=== PATIENT | female | born 1995 | race Caucasian/White ===

== ENCOUNTER 2023-07-27 09:11 | Outpatient (AMB) | payer OTHER, SELFPAY ==
--- NOTE | 2023-07-27 09:16 | A.OFFVIS_ITS ---
Vital Signs 07/27/23 09:27 Height 5 ft 7 in Weight 190 lb 14.725 oz BMI 29.9 BP 112/74 Blood Pressure Location Lt brachial Position Sitting Pulse 82 Pulse Source Pulse Oximeter Pulse Oximetry (%) 97 Oxygen Delivery Method Room Air Intake Visit Reasons: Nausea, abdominal discomfort Intake Note: Germania presents in office today for a scheduled initial assessment visit. CC: Pt reports having sx for multiple years in excess of 5 years. Pt reports that they are finally ready to deal with this problem regarding their sx head on. Pt reports having frequent diarrhea, in addition to abdominal pain and intermittent nausea. Pt reports having a sharp pain prior to most BMs that is centered over the naval. Pt denies any discoloration or melena to the stool. 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 Patient reports over a decade long history of abdominal cramping and loose stools. Kate roland saw GI specialty in the past. Reports of having been tested. Patient reports 3-4 hour long test where she had to drink something and breathe into a bag. Test came back positive and patient was placed on medication. Patient was given samples in the office and was not able to afford the full treatment. Recently tested by PCP for H pylori and that was negative. Patient denies any epigastric pain postprandially. Patient denies any acid reflux, dyspepsia, dysphagia or odynophagia. Patient denies any melena, hematochezia. Patient reports that she has loose stools not necessary after eating. Sometimes she will have urge to have a bowel movement in the middle of the night and usually is loose. Patient states that when she has loose stools she usually gets cramps in the lower hard of her abdomen. [facility] Medical History Rosacea Depression Anxiety Surgical History [place] teeth extracted Hx of rhinoplasty Social History Alcohol intake: current Comment: Intermittently Patient Tobacco Use Status: Never used Tobacco Substance Use Type: Marijuana Review of Systems Const Denies weight gain and Denies weight loss ENT Reports no additional complaints, Denies dysphagia and Denies odynophagia Card Reports no additional complaints Resp Reports no additional complaints GI Reports abdominal pain (Cramping), Denies belching, Denies melena, Reports bloating, Denies change in bowel habits, Denies dysphagia, Denies excessive flatus, Denies dyspepsia, Denies heartburn, Denies diarrhea, Reports loose stools, Denies nausea, Denies odynophagia and Denies vomiting Musc Reports no additional complaints Neuro Reports no additional complaints Psych Reports no additional complaints Endo Reports no additional complaints Physical Exam Vital Signs: Last Vital Signs Pulse 82 07/27/23 09:27 BP 112/74 07/27/23 09:27 Pulse Ox 97 07/27/23 09:27 Oxygen Delivery Method Room Air 07/27/23 09:27 BMI result Body Mass Index 29.9 Const General: healthy appearing, no acute distress and well developed Nutritional Appearance: well nourished Orientation/consciousness: patient oriented x3 Resp Effort & Inspection: normal respiratory effort, able to speak in complete sentences, no tracheal deviation and symmetric chest movement Auscultation: clear to auscultation bilaterally Cardio Rate: regular rate GI Inspection: Yes normal to inspection, No distended and Yes obesity Palpation (GI): Soft to palpation, not firm, nontender and No hepatosplenomegaly present Auscultation: normal bowel sounds General: Yes no CVA tenderness Back/Spine/Pelvis Back: no CVA tenderness Skin General skin exam: elasticity normal, turgor normal and dry skin Neuro General: patient oriented x3 Psych Appearance: grossly normal Mental Status: mental status grossly normal Assessment & Plan Assessment & Plan (1) Diarrhea: Code(s): R19.7 - Diarrhea, unspecified Qualifiers: Diarrhea type: functional diarrhea Qualified Code(s): K59.1 - Functional diarrhea (2) Abdominal pain: Code(s): R10.9 - Unspecified abdominal pain Qualifiers: Abdominal location: lower abdomen, unspecified Qualified Code(s): R10.30 - Lower abdominal pain, unspecified (3) Nausea: Code(s): R11.0 - Nausea Plan Will check CRP, vitamin-D, B12 and folate levels. Will rule out inflammatory bowel disease. Most likely IBS with both diarrhea and constipation. Will rule out malabsorption. Patient does take oral supplements. Patient was encouraged to increase fiber intake and fluid intake. Discussed with patient low FODMAP diet. Patient will try to avoid carbs as much as she can as well as lactose. List of food recommended as well as list of food to avoid given to patient. Patient will follow-up in 3 months, sooner on as needed basis. She is agreeable to this plan and verbalizes understanding of instructions. She was given the opportunity to ask questions and all questions answered. Thank you for allowing me to participate in her care Orders: Orders C Reactive Protein Today K58.9 - Irritable bowel syndrome without diarrhea Vitamin B12 and Folate Today R19.7 - Diarrhea, unspecified Vitamin D 25-OH (D2 and D3) Today E55.9 - Vitamin D deficiency, unspecified Coding Level of Care Code New Pt Level 4 (04672) Diagnoses Functional diarrhea K59.1 Diarrhea type: functional diarrhea Lower abdominal pain R10.30 Abdominal location: lower abdomen, unspecified Nausea R11.0 Time Spent (min) 45 Comment 30 minutes spent with patient and additional 15 minutes spent reviewing her records
[2023-07-27 09:27] VITALS: BP 112/74; PULSE 82; O2SAT 97; BMI 29.9
== END 2023-07-27 09:55 | disposition home or self-care (01) ==
PROVIDERS: Visit Provider Nurse Practitioner Family
DX: K59.1 Functional diarrhea (principal); R10.30 Lower abdominal pain, unspecified; R11.0 Nausea
CPT/HCPCS: 99204

== ENCOUNTER → 2023-07-27 09:11 | Outpatient (BNVA) | payer OTHER, SELFPAY | PROVIDERS: Visit Provider Nurse Practitioner Family | DX: K59.1 Functional diarrhea (principal); R10.30 Lower abdominal pain, unspecified; R11.0 Nausea | CPT/HCPCS: 99202 ==

== ENCOUNTER 2023-09-29 13:39 | Outpatient (REF) | payer OTHER, SELFPAY ==
[2023-09-29 16:37] LABS: C Reactive Protein 0.65 mg/dL (< or = 0.50)
[2023-09-29 17:04] LABS: Vitamin B12 1125 pg/mL (200-900)
[2023-10-08 05:39] LABS: Vitamin D 25-OH, D2 <4 ng/mL; Vitamin D 25-OH, D3 100 ng/mL; Vitamin D 25-OH, Total 100 ng/mL (30-100)
== END 2023-09-29 13:40 | disposition home or self-care (01) ==
LOC: HO.LAB 13:39
PROVIDERS: Visit Provider Nurse Practitioner Family
DX: R19.7 Diarrhea, unspecified (principal); K58.9 Irritable bowel syndrome, unspecified; E55.9 Vitamin D deficiency, unspecified; K59.00 Constipation, unspecified
CPT/HCPCS: 36415; 82306; 82607; 82746; 86140; 99212

== ENCOUNTER 2023-09-29 13:39 | Outpatient (AMB) | payer OTHER, SELFPAY ==
--- NOTE | 2023-09-29 13:53 | MHC.OFFVIS ---
Vital Signs 09/29/23 13:54 Height 5 ft 7 in Weight 194 lb 14.218 oz BMI 30.5 BP 140/86 H Blood Pressure Location Rt brachial Position Sitting Pulse 84 Pulse Source Pulse Oximeter Pulse Oximetry (%) 98 Oxygen Delivery Method Room Air Intake Visit Reasons: 2 month follow up Intake Note: Germania presents in office today for a scheduled 2 mos FUV. CC; Pt reports that they have remained stable since their last visit. No improvements noticed. Pt still managing chronic sx. Pt reports that they did not get their labs done. However, MA was able to convince the pt to have their lab work done today so that we can get results by the end of the week. Director Of Strategic Sourcing Required: No Allergies cefprozil [From Cefzil] Allergy (Unknown, Verified 09/29/23 13:54) Unknown Sulfa (Sulfonamide Antibiotics) Allergy (Unknown, Verified 09/29/23 13:54) Unknown HPI HPI 2 month follow up: Details: LAST VISIT: Diarrhea Abdominal pain Nausea Plan Will check CRP, vitamin-D, B12 and folate levels. Will rule out inflammatory bowel disease. Most likely IBS with both diarrhea and constipation. Will rule out malabsorption. Patient does take oral supplements. Patient was encouraged to increase fiber intake and fluid intake. Discussed with patient low FODMAP diet. Patient will try to avoid carbs as much as she can as well as lactose. List of food recommended as well as list of food to avoid given to patient. Patient will follow-up in 3 months, sooner on as needed basis. She is agreeable to this plan and verbalizes understanding of instructions. She was given the opportunity to ask questions and all questions answered. ? Thank you for allowing me to participate in her care Orders Orders C Reactive Protein Today K58.9 Vitamin B12 and Folate Today R19.7 Vitamin D 25-OH (D2 and D3) Today E55.9 TODAY'S VISIT Patient is here today for follow-up and to discuss lab results. Patient was unable to do her labs. Patient will try to get them done today. Patient reports that not much change since last visit. Patient states that she continues to have constipation and then diarrhea. On and off abdominal cramping and bloating. Patient reports occasional dyspepsia without dysphagia or odynophagia. Patient states that she tried changing her diet. No significant change when trying PFSH Medical History Rosacea Depression Anxiety Surgical History [place] teeth extracted Hx of rhinoplasty Social History Alcohol intake: current Comment: Intermittently Patient Tobacco Use Status: Never used Tobacco Substance Use Type: Marijuana Review of Systems Const Denies weight gain and Denies weight loss ENT Reports no additional complaints, Denies dysphagia and Denies odynophagia Card Reports no additional complaints Resp Reports no additional complaints GI Denies abdominal pain, Denies belching, Denies melena, Denies bloating, Denies change in bowel habits, Reports constipation, Denies dysphagia, Denies excessive flatus, Denies dyspepsia, Denies heartburn, Denies diarrhea, Reports loose stools (occasional), Denies nausea, Denies odynophagia and Denies vomiting Reports no additional complaints Musc Reports no additional complaints Neuro Reports no additional complaints Psych Reports no additional complaints Endo Reports no additional complaints Physical Exam Vital Signs: Last Vital Signs Pulse 84 09/29/23 13:54 BP 140/86 H 09/29/23 13:54 Pulse Ox 98 09/29/23 13:54 Oxygen Delivery Method Room Air 09/29/23 13:54 BMI result Body Mass Index 30.5 Const General: healthy appearing and no acute distress Nutritional Appearance: obese Orientation/consciousness: patient oriented x3 Resp Effort & Inspection: normal respiratory effort, able to speak in complete sentences, no tracheal deviation and symmetric chest movement Auscultation: clear to auscultation bilaterally Cardio Rate: regular rate GI Inspection: Yes normal to inspection, No distended and Yes obesity Palpation (GI): Soft to palpation, not firm, nontender and No hepatosplenomegaly present Auscultation: normal bowel sounds General: Yes no CVA tenderness Back/Spine/Pelvis Back: no CVA tenderness Skin General skin exam: elasticity normal, turgor normal and dry skin Neuro General: patient oriented x3 Psych Appearance: grossly normal Mental Status: mental status grossly normal Assessment & Plan Assessment & Plan (1) Diarrhea: Code(s): R19.7 - Diarrhea, unspecified Qualifiers: Diarrhea type: functional diarrhea Qualified Code(s): K59.1 - Functional diarrhea (2) Abdominal pain: Code(s): R10.9 - Unspecified abdominal pain Qualifiers: Abdominal location: generalized Qualified Code(s): R10.84 - Generalized abdominal pain (3) Nausea: Code(s): R11.0 - Nausea (4) Constipation: Code(s): K59.00 - Constipation, unspecified Qualifiers: Constipation type: slow transit constipation Qualified Code(s): K59.01 - Slow transit constipation Plan Patient will go and get her blood work done today. Patient will start taking senna. States that she is not feeling like she is emptying her bowels completely despite having occasional loose stools. Increase fiber intake. Avoid dietary triggers. If CRP elevated, will do fecal calprotectin to rule out inflammatory bowel disease. Patient will return in the office in 3 months, sooner on as needed basis. She is agreeable to this plan and verbalizes understanding of instructions. She was given the opportunity to ask questions and all questions answered. Thank you for allowing me to participate in her care Medications: New sennosides (Natural Senna Laxative) 17.2 mg (2 x 8.6 mg) PO BEDTIME 60 tabs 3RF constipation K59.00 - Constipation, unspecified Coding Level of Care Code Est Pt Level 3 (81090) Diagnoses Functional diarrhea K59.1 Diarrhea type: functional diarrhea Generalized abdominal pain R10.84 Abdominal location: generalized Nausea R11.0 Slow transit constipation K59.01 Constipation type: slow transit constipation Time Spent (min) 30 Comment 20 minutes spent with patient additional 10 minutes spent reviewing her records
[2023-09-29 13:54] VITALS: BP 140/86; PULSE 84; O2SAT 98; BMI 30.5
== END 2023-09-29 14:28 | disposition home or self-care (01) ==
LOC: HO.HGI 13:39
PROVIDERS: Visit Provider Nurse Practitioner Family
DX: K59.1 Functional diarrhea (principal); R10.84 Generalized abdominal pain; R11.0 Nausea; K59.01 Slow transit constipation
CPT/HCPCS: 99213

== ENCOUNTER 2023-12-31 11:56 | Outpatient (AMB) | payer OTHER, SELFPAY ==
[2023-12-31 11:59] VITALS: BP 102/76; PULSE 80; O2SAT 97; BMI 29.0
--- NOTE | 2023-12-31 11:59 | A.OFFVIS_ITS ---
Vital Signs 12/31/23 11:59 Height 5 ft 7 in Weight 185 lb 3.013 oz BMI 29.0 BP 102/76 Blood Pressure Location Rt brachial Position Sitting Pulse 80 Pulse Source Pulse Oximeter Pulse Oximetry (%) 97 Oxygen Delivery Method Room Air Intake Visit Reasons: 3 mos FUV. Discuss colo Intake Note: PRESCRIPTIONS LAST GENERATED sennosides 8.6 mg tablet?(Natural Senna Laxative)?17.2 mg (2 x 8.6 mg) PO BEDTIME 60 tabs 3RF Kathy Gomez D 09/29/23 14:21 (Transmitted) Pt is still taking PRN without difficulty Relevant Flags or Indicators ? Requires Technical Support Technician? Kathleen Solo presents in office today for a scheduled 3 mos FUV and to discuss colo. CC; No recent labs, diagnostics. Pt reports having labs done per their initial visit since their most recent visit. ? Relevant GI Sx as reported per pt? Pt has recently started GLP 1 therapy and has had standard side effects as anticipated. Pt has had abdominal cramping, diarrhea, etc. ? Hx of any recent surgeries? None Technical Support Technician Required: No Allergies cefprozil [From Cefzil] Allergy (Unknown, Verified 12/31/23 11:59) Unknown Sulfa (Sulfonamide Antibiotics) Allergy (Unknown, Verified 12/31/23 11:59) Unknown HPI HPI 3 mos FUV. Discuss colo: Details: LAST VISIT: Diarrhea Abdominal pain Nausea Constipation Plan Patient will go and get her blood work done today. Patient will start taking senna. States that she is not feeling like she is emptying her bowels completely despite having occasional loose stools. Increase fiber intake. Avoid dietary triggers. If CRP elevated, will do fecal calprotectin to rule out inflammatory bowel disease. Patient will return in the office in 3 months, sooner on as needed basis. She is agreeable to this plan and verbalizes understanding of instructions. She was given the opportunity to ask questions and all questions answered. ? Thank you for allowing me to participate in her care Medications New sennosides (Natural Senna Laxative) 17.2 mg (2 x 8.6 mg) PO BEDTIME 60 tabs 3RF constipation K59.00 TODAY'S VISIT: Patient is here today for follow-up and to discuss going for colonoscopy. Patient has colonoscopy booked for January 26 and follow-up in the office on February 13. Patient reports that couple months ago she started taking Wegovy and is having dyspepsia, abdominal pain and bloating, occasional diarrhea, however she states that lately she has been more constipated the. Patient does have a family history of inflammatory bowel disease. CRP mildly elevated, however we will do colonoscopy 1st and then will do fecal calprotectin as that has to be preapproved by her insurance. Patient denies any issues with anesthesia in the past. No history of sleep apnea. Not on any anticoagulation medication. She is taking GLP 1 and will need to stop that week before. Her procedure scheduled for and she takes that on Wednesday so she was ask to hold that dose Wednesday before her procedure [facility] Medical History Rosacea Depression Anxiety Surgical History [place] teeth extracted Hx of rhinoplasty Social History Alcohol intake: current Comment: Intermittently Patient Tobacco Use Status: Never used Tobacco Substance Use Type: Marijuana Review of Systems Const Denies weight gain and Denies weight loss ENT Reports no additional complaints, Denies dysphagia and Denies odynophagia Card Reports no additional complaints Resp Reports no additional complaints GI Denies abdominal pain, Denies belching, Denies melena, Denies bloating, Denies change in bowel habits, Reports constipation, Denies dysphagia, Denies excessive flatus, Reports dyspepsia, Denies heartburn, Denies diarrhea, Reports loose stools, Denies nausea, Denies odynophagia and Denies vomiting Musc Reports no additional complaints Neuro Reports no additional complaints Psych Reports no additional complaints Endo Reports no additional complaints Physical Exam Vital Signs: Last Vital Signs Pulse 80 12/31/23 11:59 BP 102/76 12/31/23 11:59 Pulse Ox 97 12/31/23 11:59 Oxygen Delivery Method Room Air 12/31/23 11:59 BMI result Body Mass Index 29.0 Const General: healthy appearing and no acute distress Nutritional Appearance: obese Orientation/consciousness: patient oriented x3 Resp Effort & Inspection: normal respiratory effort, able to speak in complete sentences, no tracheal deviation and symmetric chest movement Auscultation: clear to auscultation bilaterally Cardio Rate: regular rate GI Inspection: Yes normal to inspection, No distended and Yes obesity Palpation (GI): Soft to palpation, not firm, nontender and No hepatosplenomegaly present Auscultation: normal bowel sounds General: Yes no CVA tenderness Back/Spine/Pelvis Back: no CVA tenderness Skin General skin exam: elasticity normal, turgor normal and dry skin Neuro General: patient oriented x3 Psych Appearance: grossly normal Mental Status: mental status grossly normal Assessment & Plan Assessment & Plan (1) Diarrhea: Code(s): R19.7 - Diarrhea, unspecified Qualifiers: Diarrhea type: functional diarrhea Qualified Code(s): K59.1 - Functional diarrhea (2) Abdominal pain: Code(s): R10.9 - Unspecified abdominal pain Qualifiers: Abdominal location: unspecified location Qualified Code(s): R10.9 - Unspecified abdominal pain (3) Nausea: Code(s): R11.0 - Nausea (4) Constipation: Code(s): K59.00 - Constipation, unspecified Qualifiers: Constipation type: slow transit constipation Qualified Code(s): K59.01 - Slow transit constipation Plan Patient will continue avoiding dietary triggers. What to expect before during and after procedure discussed with patient. Stressed the importance of good bowel prep and clear liquid diet day before procedure. I will see her after the procedure. Mildly elevated CRP, however as mentioned above in HPI we will hold off for now on doing fecal calprotectin. Patient is having more constipation then diarrhea now. Continue senna as needed. Patient is agreeable to current plan of care and verbalizes understanding of instructions. She was given the opportunity to ask questions and all questions answered. Thank you for allowing me to participate in her care Medications: New bisacodyl (Dulcolax (bisacodyl)) take 4 tabs at noon the day before your colonoscopy 20 mg (4 x 5 mg) PO ONCE 1 day 4 tabs 0RF Z12.11 - Encounter for screening for malignant neoplasm of colon polyethylene glycol 3350 (Miralax) As directed by gastroenterology department at [facility] 238 grams PO ONCE 238 grams 0RF Z12.11 - Encounter for screening for malignant neoplasm of colon Coding Level of Care Code Est Pt Level 3 (73984) Diagnoses Functional diarrhea K59.1 Diarrhea type: functional diarrhea Abdominal pain, unspecified abdominal location R10.9 Abdominal location: unspecified location Nausea R11.0 Slow transit constipation K59.01 Constipation type: slow transit constipation Time Spent (min) 30 Comment 20 minutes spent with patient and additional 10 minutes spent reviewing her records
== END 2023-12-31 12:48 | disposition home or self-care (01) ==
PROVIDERS: Visit Provider Nurse Practitioner Family
DX: K59.1 Functional diarrhea (principal); R10.9 Unspecified abdominal pain; R11.0 Nausea; K59.01 Slow transit constipation
CPT/HCPCS: 99213

== ENCOUNTER → 2023-12-31 11:56 | Outpatient (BNVA) | payer OTHER, SELFPAY | PROVIDERS: Visit Provider Nurse Practitioner Family | DX: K59.1 Functional diarrhea (principal); R10.9 Unspecified abdominal pain; R11.0 Nausea; K59.01 Slow transit constipation | CPT/HCPCS: 99212 ==

== ENCOUNTER 2024-01-27 11:44 | Day surgery (SDC) | payer OTHER, SELFPAY ==
[2024-01-25 13:27] VITALS: BMI 29.0
--- NOTE | 2024-01-27 11:51 | MHC.SHP ---
Pre-Procedural Eval Section A - 24 Hr Update-Section A only Date of Service: 01/27/24 The patient is an INPATIENT: No The patient has been examined within 24 hours of the surgical procedure. The History & Physical has been completed within 30 days and I have reviewed it.: Yes Section B - Complete if H&P > 30 days Chief Complaint: diarrhea Allergies: Allergies Allergy/AdvReac Type Severity Reaction Status Date / Time cefprozil [From Cefzil] Allergy Unknown Unknown Verified 12/31/23 11:59 Sulfa (Sulfonamide Allergy Unknown Unknown Verified 12/31/23 11:59 Antibiotics) Plan Diagnosis/Plan: Unchanged I have reviewed the history and physical and performed a pertinent physical examination on my patient. No changes have occurred unless specified. Time Spent With Patient Time: Total time managing care of this patient today ____ minutes.
[2024-01-27 12:15] VITALS: BP 120/79; PULSE 104; RESP 16; TEMP 36.9; O2SAT 97
--- NOTE | 2024-01-27 12:15 | HO.ANESPROP2 ---
Documented by User: Maryellen Zimmerman NP 01/26/24 08:48 HPI - Anesthesia Eval Consult details Narrative: 28yo F for Colonoscopy Anesthesia Pre-Procedure Meds Is the patient on any of the following meds?: GLP1/DPP4 PMFSH Past Medical History Medical History Rosacea Depression Anxiety Surgical History Surgical History [place] teeth extracted Hx of rhinoplasty Social History Social History Alcohol intake: current Comment: Intermittently Patient Tobacco Use Status: Never used Tobacco Use of substances other than those prescribed or required for medical reasons: Yes Substance Use Type: Marijuana Substance Use Type Other:: LAST USED TUES. Substance Use Frequency: Daily Are you DNR?: No Advance Directives: No Advance Directives Information Provided: Yes Meds Allergies Allergy/AdvReac Type Severity Reaction Status Date / Time cefprozil [From Cefzil] Allergy Unknown Unknown Verified 01/27/24 11:56 Sulfa (Sulfonamide Allergy Unknown Unknown Verified 01/27/24 11:56 Antibiotics) Home Medications ?Medication ?Instructions ?Recorded ?Confirmed ?Last Taken ?Type alprazolam 0.5 mg tablet 0.5 mg PO ONCE PRN Anxiety 07/27/23 01/27/24 Unknown History bupropion HCl 300 mg 24 hr tablet, mg PO 07/27/23 Unknown History extended release buspirone 15 mg tablet 15 mg PO ONCE 07/27/23 01/27/24 Unknown History dextroamphetamine-amphetamine 10 10 mg PO DAILY 07/27/23 01/27/24 Unknown History mg tablet metronidazole 1 % topical gel topical 07/27/23 Unknown History ondansetron HCl 4 mg tablet mg PO Q6-8H PRN Nausea 07/27/23 Unknown History semaglutide (weight loss) 1.7 mg subcut 12/31/23 Unknown History mg/0.75 mL subcutaneous pen injector (Anne) doxycycline hyclate 50 mg capsule 50 mg PO DAILY 01/27/24 01/27/24 Unknown History Exam Height,Weight and Vital Signs: Height 5 ft 7 in Weight 83.915 kg Assessment and Plan Assessment Anesthesia Assessment: Chart Reviewed Documented by User: Inna Marks DO 01/27/24 12:19 HPI - Anesthesia Eval Consult details Narrative: 28yo F for Colonoscopy. Medical marijuana daily. Anesthesia Pre-Procedure Meds Is the patient on any of the following meds?: GLP1/DPP4 PMFSH Past Medical History Medical History Rosacea Depression Anxiety Family History Family history of problems with anesthesia: No Surgical History Surgical History [place] teeth extracted Hx of rhinoplasty History of Problems with Anesthesia: No Social History Social History Alcohol intake: current Comment: Intermittently Patient Tobacco Use Status: Never used Tobacco Use of substances other than those prescribed or required for medical reasons: Yes Substance Use Type: Marijuana Substance Use Type Other:: LAST USED TUES. Substance Use Frequency: Daily Are you DNR?: No Advance Directives: No Advance Directives Information Provided: Yes Meds Allergies Allergy/AdvReac Type Severity Reaction Status Date / Time cefprozil [From Cefzil] Allergy Unknown Unknown Verified 01/27/24 11:56 Sulfa (Sulfonamide Allergy Unknown Unknown Verified 01/27/24 11:56 Antibiotics) Home Medications ?Medication ?Instructions ?Recorded ?Confirmed ?Last Taken ?Type alprazolam 0.5 mg tablet 0.5 mg PO ONCE PRN Anxiety 07/27/23 01/27/24 Unknown History bupropion HCl 300 mg 24 hr tablet, mg PO 07/27/23 Unknown History extended release buspirone 15 mg tablet 15 mg PO ONCE 07/27/23 01/27/24 Unknown History dextroamphetamine-amphetamine 10 10 mg PO DAILY 07/27/23 01/27/24 Unknown History mg tablet metronidazole 1 % topical gel topical 07/27/23 Unknown History ondansetron HCl 4 mg tablet mg PO Q6-8H PRN Nausea 07/27/23 Unknown History semaglutide (weight loss) 1.7 mg subcut 12/31/23 Unknown History mg/0.75 mL subcutaneous pen injector (Haigovy) doxycycline hyclate 50 mg capsule 50 mg PO DAILY 01/27/24 01/27/24 Unknown History Exam Exam Date and Time: 01/27/24 1218 Airway Mallampati Class: II TM Dist: >3cm Neck ROM: Full Loose/Missing/Broken Teeth: No (patient denies any loose or broken teeth) Heart: S1S2 Lungs: CTAB Assessment and Plan Assessment Anesthesia Assessment: Anesthesia Plan Discussed and Chart Reviewed Final Anesthetic Review Family History of Problems with Anesthesia: No History of Problems with Anesthesia: No NPO: Yes ASA Class: II Final Preanesthetic Review: No Changes in Pt Med Stat, Meds/Allgs Chart Reviewed, Consent Obtained/Reviewed and Anes Risks/Benef Reviewed Patient Risk: Low Procedure Risk: Low Anesthetic Plan Anesthetic Plan: MAC: and Agree w/ Assess. and Plan Disposition: Standard PACU
[2024-01-27] MEDS: Lactated Ringers 1,000 ML 100 ML IVCONT (12:29)
[2024-01-27 12:35] LABS: UPreg QC Valid YES; Urine Pregnancy NEGATIVE (NEGATIVE)
[2024-01-27 12:56] VITALS: BP 97/57; PULSE 104; RESP 12; TEMP 36.1; O2SAT 97
--- NOTE | 2024-01-27 12:56 | P.OPN-COLO_ITS ---
Colonoscopy Operative Note Operative Note Date of Service: 01/27/24 Narrative: Procedure: Colonoscopy Indication: Change in bowel habits, chronic diarrhea Endoscopist: Ambar Scott MD Anesthesia Provider: Nicho Conway CRNA Anesthesia type: MAC Instrument: Olympus [id number]-[id number] Consent: Indication, risks vs benefits, and alternatives were discussed with the patient who gave written informed consent to proceed. EKG, pulse, pulse oximetry and blood pressure were monitored throughout the procedure. Please see anesthesia flowsheet. Procedure: The patient was brought to the procedure room and placed in the left lateral decubitus position. IV medications were administered by the anesthesia p rovider in attendance. A digital rectal exam was performed which was abnormal for small external hemorrhoid. A distal attachment cap was affixed to the tip of the colonoscope which was then inserted through the anus and advanced through the colon to the cecum at 75 cm,and terminal ileum. Appendiceal orifice and ileocecal valve were identified. Mucosa was carefully examined under high definition white light as the instrument was slowly withdrawn in a retrograde panoramic fashion. Retroflexion was performed in rectum. The procedure was not difficult. There were no immediate obvious complications. The quality of the prep was BBPS: 2+2+3 = adequate Withdrawal time 6 minutes. Limitations: No limitations. Findings: Mucosa: Normal to cecum and terminal ileum. Cold forceps biopsies were taken from right and left side of the colon to rule out microscopic colitis. Protruding lesions: * Medium internal hemorrhoids without stigmata of recent bleeding. Impression: 1. Normal colon and terminal ileum mucosa (biopsy) 2. Internal hemorrhoids Recommendations: - follow path results - consider checking celiac serology - resume asymptomatic colorectal cancer screening at age 45 y.o
[2024-01-27 13:11] VITALS: BP 116/67; PULSE 92; RESP 16; TEMP 36.3; O2SAT 96
== END 2024-01-27 13:40 | disposition home or self-care (01) ==
PROVIDERS: Nurse Practitioner; Visit Provider Internal Medicine
PROC: 0DJD8ZZ Inspection of Lower Intestinal Tract, Via Natural or Artificial Opening Endoscopic (ICD-10-PCS; CPT 45378; principal; 2024-01-27 14:20)
DX: R10.9 Unspecified abdominal pain (principal); K59.1 Functional diarrhea; R11.0 Nausea; K59.01 Slow transit constipation; K64.8 Other hemorrhoids; F32.A Depression, unspecified; F41.9 Anxiety disorder, unspecified; L71.9 Rosacea, unspecified; Z79.85 Long-term (current) use of injectable non-insulin antidiabetic drugs; Z79.899 Other long term (current) drug therapy; Z88.2 Allergy status to sulfonamides; Z88.8 Allergy status to other drugs, medicaments and biological substances; Z98.890 Other specified postprocedural states
CPT/HCPCS: 45380; 81025; 88305; J2003; J2704

== ENCOUNTER → 2024-01-27 11:44 | Outpatient (BNV) | payer OTHER, SELFPAY | PROVIDERS: Visit Provider Internal Medicine | DX: K52.9 Noninfective gastroenteritis and colitis, unspecified (principal); K64.8 Other hemorrhoids | CPT/HCPCS: 45380 ==

== ENCOUNTER 2024-02-14 12:26 | Outpatient (AMB) | payer OTHER, SELFPAY ==
[2024-02-14 12:26] VITALS: BP 128/76; PULSE 96; O2SAT 97; BMI 27.5
--- NOTE | 2024-02-14 12:26 | MHC.OFFVIS ---
Vital Signs 02/14/24 12:26 Height 5 ft 7 in Weight 175 lb 7.807 oz BMI 27.5 BP 128/76 Blood Pressure Location Rt brachial Position Sitting Pulse 96 Pulse Source Pulse Oximeter Pulse Oximetry (%) 97 Oxygen Delivery Method Room Air Intake Visit Reasons: s/p colon Intake Note: ESTABLISHED PATIENT Reason; in office s/p FUV. BZ colo Changes/concerns? Pt reports const. sx per recent change to zepbound. Allergies cefprozil [From Cefzil] Allergy (Unknown, Verified 02/14/24 12:30) Unknown Sulfa (Sulfonamide Antibiotics) Allergy (Unknown, Verified 02/14/24 12:30) Unknown HPI HPI s/p colon: Details: LAST VISIT: Diarrhea Abdominal pain Nausea Constipation Plan Patient will continue avoiding dietary triggers. What to expect before during and after procedure discussed with patient. Stressed the importance of good bowel prep and clear liquid diet day before procedure. I will see her after the procedure. Mildly elevated CRP, however as mentioned above in HPI we will hold off for now on doing fecal calprotectin. Patient is having more constipation then diarrhea now. Continue senna as needed. Patient is agreeable to current plan of care and verbalizes understanding of instructions. She was given the opportunity to ask questions and all questions answered. ? Thank you for allowing me to participate in her care Medications New bisacodyl (Dulcolax (bisacodyl)) take 4 tabs at noon the day before your colonoscopy 20 mg (4 x 5 mg) PO ONCE 1 day 4 tabs 0RF Z12.11 polyethylene glycol 3350 (Miralax) As directed by gastroenterology department at [facility] 238 grams PO ONCE 238 grams 0RF Z12.11 COLONOSCOPY: Findings: Mucosa: Normal to cecum and terminal ileum. Cold forceps biopsies were taken from right and left side of the colon to rule out microscopic colitis. Protruding lesions: Medium internal hemorrhoids without stigmata of recent bleeding. Impression: 1. Normal colon and terminal ileum mucosa (biopsy) 2. Internal hemorrhoids Recommendations: - follow path results - consider checking celiac serology - resume asymptomatic colorectal cancer screening at age 45 y.o PATHOLOGY RESULTS: Diagnosis A. Colon, right, biopsy: Colonic mucosa within normal limits. B. Colon, left, biopsy: Colonic mucosa within normal limits. TODAY'S VISIT Patient is here today for follow-up and to discuss colonoscopy results. Patient denies any ill effects from the prep, anesthesia procedure itself. Patient reports that her bowel pattern changed again. No longer has diarrhea. Patient reports that when she started taking Zepbound her bowel changed. Patient has less GI symptoms, however she is more constipated now. Colonoscopy and biopsy results discussed with patient. Patient had normal colonoscopy with normal colonic mucosa. Medium size hemorrhoids found without stigmata of recent bleeding PFSH Medical History Rosacea Depression Anxiety Surgical History H/O colonoscopy [place] teeth extracted Hx of rhinoplasty Social History Alcohol intake: current Comment: Intermittently Patient Tobacco Use Status: Never used Tobacco Substance Use Type: Marijuana Review of Systems Const Denies weight gain and Denies weight loss ENT Reports no additional complaints, Denies dysphagia and Denies odynophagia Card Reports no additional complaints Resp Reports no additional complaints GI Denies abdominal pain, Denies belching, Denies melena, Denies bloating, Denies change in bowel habits, Reports constipation, Denies dysphagia, Denies excessive flatus, Denies dyspepsia, Denies heartburn, Denies diarrhea, Denies nausea, Denies odynophagia and Denies vomiting Reports no additional complaints Musc Reports no additional complaints Neuro Reports no additional complaints Psych Reports no additional complaints Endo Reports no additional complaints Physical Exam Vital Signs: Last Vital Signs Pulse 96 02/14/24 12:26 BP 128/76 02/14/24 12:26 Pulse Ox 97 02/14/24 12:26 Oxygen Delivery Method Room Air 02/14/24 12:26 BMI result Body Mass Index 27.5 Const General: healthy appearing and no acute distress Nutritional Appearance: obese Orientation/consciousness: patient oriented x3 Resp Effort & Inspection: normal respiratory effort, able to speak in complete sentences, no tracheal deviation and symmetric chest movement Auscultation: clear to auscultation bilaterally Cardio Rate: regular rate GI Inspection: Yes normal to inspection, No distended and Yes obesity Palpation (GI): Soft to palpation, not firm, nontender and No hepatosplenomegaly present Auscultation: normal bowel sounds General: Yes no CVA tenderness Back/Spine/Pelvis Back: no CVA tenderness Skin General skin exam: elasticity normal, turgor normal and dry skin Neuro General: patient oriented x3 Psych Appearance: grossly normal Mental Status: mental status grossly normal Results Reviewed Results Reviewed: Laboratory Tests 09/29/23 14:45 C-Reactive Protein 0.65 H Vitamin B12 1125 H 25-OH Vitamin D Total 100 Folate 11.0 Assessment & Plan Assessment & Plan (1) Diarrhea: Code(s): R19.7 - Diarrhea, unspecified Qualifiers: Diarrhea type: functional diarrhea Qualified Code(s): K59.1 - Functional diarrhea (2) Abdominal pain: Code(s): R10.9 - Unspecified abdominal pain Qualifiers: Abdominal location: generalized Qualified Code(s): R10.84 - Generalized abdominal pain (3) Nausea: Code(s): R11.0 - Nausea (4) Constipation: Code(s): K59.00 - Constipation, unspecified Qualifiers: Constipation type: slow transit constipation Qualified Code(s): K59.01 - Slow transit constipation (5) Status post colonoscopy: Code(s): Z98.890 - Other specified postprocedural states Plan Patient admits that she has been feeling better. Currently she is on Zepbound for weight loss and her symptoms of dyspepsia and acid reflux have suppressed. Patient had Normal colonoscopy. Increase fluid intake and activity to promote better bowel motility. Continue avoiding dietary triggers and late night snacking. Staying upright for minimum 3 hours after meals discussed with patient. Will check thyroid level and transglutaminase and will call patient with results. She will follow-up in our office on as needed basis. She is agreeable to current plan of care and verbalizes understanding of instructions. She was given the opportunity to ask questions and all questions answered. Thank you for allowing me to participate in her care Orders: Orders Transglutaminase IgA Today R10.9 - Unspecified abdominal pain TSH reflex Free T4 Today K59.00 - Constipation, unspecified Coding Level of Care Code Est Pt Level 3 (10787) Diagnoses Functional diarrhea K59.1 Diarrhea type: functional diarrhea Generalized abdominal pain R10.84 Abdominal location: generalized Nausea R11.0 Slow transit constipation K59.01 Constipation type: slow transit constipation Status post colonoscopy Z98.890 Time Spent (min) 25 Comment 15 minutes spent with patient and additional 10 minutes spent reviewing her records
== END 2024-02-14 14:04 | disposition home or self-care (01) ==
PROVIDERS: Visit Provider Nurse Practitioner Family
DX: K59.1 Functional diarrhea (principal); R10.84 Generalized abdominal pain; R11.0 Nausea; K59.01 Slow transit constipation; Z98.890 Other specified postprocedural states
CPT/HCPCS: 99213

== ENCOUNTER → 2024-02-14 12:26 | Outpatient (BNVA) | payer OTHER, SELFPAY | PROVIDERS: Visit Provider Nurse Practitioner Family | DX: K59.1 Functional diarrhea (principal); K59.01 Slow transit constipation; R10.84 Generalized abdominal pain; R11.0 Nausea; Z98.890 Other specified postprocedural states | CPT/HCPCS: 99212 ==